=== PATIENT | female | born 1965 | race Hispanic/Latino ===

== ENCOUNTER 2018-08-26 15:56 | Outpatient (CLI) | payer OTHER | END 2018-08-26 15:57 | disposition home or self-care (01) | LOC: BICMAMMO 15:56 | PROVIDERS: ATTEND Family Medicine | DX: Z12.31 Encounter for screening mammogram for malignant neoplasm of breast (principal) | CPT/HCPCS: 77063; 77067 ==

== ENCOUNTER 2020-04-12 22:46 | Emergency (ER) | payer OTHER, SELFPAY ==
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
[2020-04-12] MEDS ORDERED: Ondansetron PF 4 MG/2 ML Vial ONE (23:51)
[2020-04-13] MEDS ORDERED: Lidocaine 1% w/Epinephrine 1:100K 20 ML VIAL ONE (01:00)
[2020-04-13] MEDS ORDERED: Ondansetron PF 4 MG/2 ML Vial ONE ×2 (01:11→02:50)
[2020-04-13] MEDS ORDERED: Adacel (T-DAP) 0.5 ML SYRINGE ONE ×2 (01:23→01:34)
== END 2020-04-13 03:08 | disposition home or self-care (01) ==
LOC: ERS 22:46
DX: S01.81XA Laceration without foreign body of other part of head, initial encounter (principal); E11.9 Type 2 diabetes mellitus without complications; E78.5 Hyperlipidemia, unspecified; I10 Essential (primary) hypertension; Z23 Encounter for immunization; Y04.8XXA Assault by other bodily force, initial encounter
CPT/HCPCS: 12013; 70450; 70486; 72125; 90471; 90715; 96374; 96376; J2405; L0120

== ENCOUNTER 2023-04-06 10:37 | Emergency (ER) | payer BC, OTHER ==
[2023-04-06] MEDS ORDERED: Acetaminophen 500 MG TAB ONE (11:18)
[2023-04-06] MEDS ORDERED: Ipratropium/Albuterol 3 ML NEB ONE (13:19)
[2023-04-06 13:52] LABS: SARS-CoV-2 NAA Rapid Test Not Detected (NotDetected)
== END 2023-04-06 14:25 | disposition home or self-care (01) ==
LOC: ERS 10:37
DX: J18.9 Pneumonia, unspecified organism (principal); E11.9 Type 2 diabetes mellitus without complications; Z79.4 Long term (current) use of insulin; Z20.822 Contact with and (suspected) exposure to COVID-19
CPT/HCPCS: 71046; 87804; 94640; J7620; U0002

== ENCOUNTER 2023-07-23 10:54 | Outpatient (CLI) | payer BC | END 2023-07-23 10:55 | disposition home or self-care (01) | LOC: RAD 10:54 | PROVIDERS: ATTEND Family Medicine | DX: J18.9 Pneumonia, unspecified organism (principal) | CPT/HCPCS: 71046 ==

== ENCOUNTER 2023-07-24 10:57 | Outpatient (CLI) | payer BC | END 2023-07-24 10:58 | disposition home or self-care (01) | LOC: BICMAMMO 10:57 | PROVIDERS: ATTEND Family Medicine | DX: Z12.31 Encounter for screening mammogram for malignant neoplasm of breast (principal) | CPT/HCPCS: 77063; 77067 ==